=== PATIENT | male | born 1960 | race Caucasian/White ===

== ENCOUNTER 2016-04-29 01:36 | Emergency (ER) | payer BC ==
[2016-04-29] MEDS ORDERED: Ketorolac 30 MG/ML SDV ONE (03:38)
[2016-04-29 05:01] VITALS: BP 108/77
[2016-04-29] MEDS ORDERED: Thiamine 200 MG/2 ML MDV IM ONE (05:01)
--- NOTE | 2016-04-29 10:23 | CR ---
DATE OF SERVICE: 04/29/16 CLINICAL DATA: mid/left back pain PA AND LATERAL CHEST: No priors. The heart size is normal. The aorta is ectatic. 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 The lungs are clear. No pneumothorax. No pleural effusions. No areas of consolidation. There is minimal degenerative disc disease at multiple levels in the thoracic spine. The exam is otherwise negative. IMPRESSION: No evidence of acute intrathoracic disease. [id number] [facility]
== END 2016-04-29 04:10 | disposition home or self-care (01) ==
LOC: LB.ED 01:36
DX: M54.6 Pain in thoracic spine (principal); F10.10 Alcohol abuse, uncomplicated
CPT/HCPCS: 36415; 71020; 80053; 80307; 81001; 82150; 83690; 85025; 85379; 93005; 96372; 99284; A0425; A0429; G0480; J1885; J3411